=== PATIENT | male | born 1930 | race Caucasian/White ===

== ENCOUNTER 2018-05-06 12:09 | Emergency (ER) | payer OTHER, BC ==
[2018-05-06 12:27] VITALS: BP 153/94
--- NOTE | 2018-05-06 12:49 | EDPHY ---
H & P Time Seen by Provider: 05/06/18 12:37 HPI/ROS: CHIEF COMPLAINT: Right 4th toe pain HISTORY OF PRESENT ILLNESS: Patient is an 87-year-old male who struck his toe while getting up to go to the bathroom last evening. He has moderate pain. His toes turn black and blue. It is worse with movement. No numbness or tingling. He did not fall or strike his head. He did not sustain other injury. REVIEW OF SYSTEMS: Negative Past medical history: Includes gout, hypertension, BPH Social history: Patient does not smoke Smoking Status: Never smoked Physical Exam: Vitals noted General Appearance: Alert and no distress. Head: Pupils equal. Normal. Respiratory: No respiratory distress. Cardiac: regular rate and rhythm. Extremities: Patient's right 4th toe is ecchymotic. There is mild swelling on the right 4th toe. Mild tenderness palpation. No deformity. No foot tenderness palpation. No ankle tenderness palpation. Skin: No rashes or lesions. Neuro: Alert. Normal mood and affect. Constitutional: Initial Vital Signs Temperature (C) 36.6 C 05/06/18 12:24 Heart Rate 94 05/06/18 12:24 Respiratory Rate 18 05/06/18 12:24 Blood Pressure 153/94 H 05/06/18 12:24 O2 Sat (%) 97 05/06/18 12:24 O2 Delivery Mode Room Air Allergies/Adverse Reactions: No Known Allergies Allergy (Unverified 05/06/18 12:23) Home Medications: Medication Instructions Recorded Colchicine 05/06/18 Meds For Prostate 05/06/18 Norvasc 10 mg (*) 05/06/18 Medical Decision Making ED Course/Re-evaluation: In the emergency department I discussed possible etiologies with the patient. I answered all his questions. X-ray: There is a fracture of distal right 4th proximal phalanx. I discussed results with the patient. I answered all his questions. He was given a [place] boot. Patient did not want use crutches. I discussed the importance of having close follow-up with Orthopedics. Dr. Ricardo is contact information was given. He is given warnings prior to leaving. He will return with worsening symptoms. Differential Diagnosis: My differential includes but is not limited to fracture, contusion, sprain, strain Departure - Departure Disposition: Home, Routine, Self-Care Clinical Impression: Toe injury Qualifiers: Encounter type: initial encounter Laterality: right Qualified Code(s): S99.921A - Unspecified injury of right foot, initial encounter Toe fracture, right Qualifiers: Encounter type: initial encounter Toe: lesser toe Fracture type: closed Phalanx : proximal Fracture alignment: displaced Qualified Code(s): S92.511A - Displaced fracture of proximal phalanx of right lesser toe(s), initial encounter for closed fracture Condition: Good Instructions: Toe Fracture (ED) Additional Instructions: Keep your [place] boot in place. Return with increasing pain. Follow up with Dr. Ricardo. Call his office on Tuesday to make an appointment. Referrals: Ken Ricardo MD [Medical Doctor] - 2-3 days without fail
== END 2018-05-06 13:20 | disposition home or self-care (01) ==
LOC: CED 12:09
DX: S92.511A Displaced fracture of proximal phalanx of right lesser toe(s), initial encounter for closed fracture (principal); M10.9 Gout, unspecified; I10 Essential (primary) hypertension; W22.09XA Striking against other stationary object, initial encounter; Y92.012 Bathroom of single-family (private) house as the place of occurrence of the external cause
CPT/HCPCS: 73660; 99283; L4386